=== PATIENT | male | born 1990 | race Caucasian/White ===

== ENCOUNTER 2024-06-29 20:43 | Emergency (ER) | payer OTHER ==
[~2024-06-29] VITALS: Ht 190.5 cm; Wt 90.9 kg
[2024-06-29] MEDS: QUEtiapine 25mg tablet PO ONE (21:15)
[2024-06-29] MEDS: cloNIDine 0.1 mg tablet PO ONE (21:15)
[2024-06-29] MEDS: normal saline 1000ML IV soln IVB ONE (21:16)
[2024-06-30 04:15] VITALS: BP 115/73; PULSE 75; RESP 16; TEMP 98.1; O2SAT 97
== END 2024-06-30 04:25 | disposition home or self-care (01) ==
LOC: ER 20:44
DX: R44.1 Visual hallucinations (principal); F32.A Depression, unspecified; R00.0 Tachycardia, unspecified
CPT/HCPCS: 96360; 96361; 99285; J7030